=== PATIENT | male | born 2000 | race American Indian/Alaskan Native ===

== ENCOUNTER 2019-11-08 06:17 | Emergency (ER) | payer SELFPAY ==
[2019-11-08] MEDS ORDERED: hydrOXYzine HCL 25 MG TAB PO ONE (07:28)
[2019-11-08] MEDS ORDERED: SODIUM CHLORIDE 0.9% 1000 ML 1,000 ML IV ONE (07:28)
[2019-11-08] MEDS ORDERED: SODIUM CHLORIDE 0.9% 500 ML 500 ML IV ONE (07:28)
--- NOTE | 2019-11-08 07:37 | Emergency Department Report ---
ED Psych HPI - General Chief Complaint: Anxiety Stated Complaint: HEART RACING Time Seen by Provider: 11/08/19 07:17 Source: patient, EMS Mode of arrival: Ambulatory - History of Present Illness Initial Comments: 19-year-old male with no significant past medical history was brought to the ER today by EMS with complaints of feeling anxious. Patient states that around 5 AM this morning while he was at work, he took a puff from one of his coworker vape pens. He states soon after he started to feel very shaky and anxious, and he felt very euphoric, talkative and alert. He states he felt like he could not calm down and he felt like his heart was racing and he also felt nauseous. he states he does not know what type of liquid was in the vap. He states since arriving to ED he feels like his symptoms are improving but not completely. He states thay this was the first time vapping. He states he was just curious and therefore decided to try it. He denies ever using drugs in the past. He denies alcohol use. He denies any suicidal or homicidal ideation. He denies any kwok ucinations. He currently denies any chest pain, shortness of breath, vomiting, abdominal pain or any other symptoms at this time. He denies past hx of psych disorders. MD Complaint: other (Anxiety) -: Sudden Associated Psychiatric Symptoms: other (Anxiety) History of same: No Quality: constant Improves With: none Worsens With: none Context: recent drug abuse - Related Data Allergies Allergy/AdvReac Type Severity Reaction Status Date / Time No Known Allergies Allergy Verified 11/08/19 06:26 ED Review of Systems ROS: Stated complaint: HEART RACING Other details as noted in HPI Constitutional: denies: chills, diaphoresis, fever, weakness ENT: denies: throat pain, dental pain, hearing loss, epistaxis, congestion Respiratory: denies: cough, shortness of breath, wheezing Cardiovascular: palpitations. denies: chest pain, dyspnea on exertion, edema, syncope, paroxysmal nocturnal dyspnea, other Gastrointestinal: nausea. denies: abdominal pain, vomiting, diarrhea Genitourinary: denies: urgency, dysuria Musculoskeletal: denies: back pain, joint swelling, arthralgia Skin: denies: rash, lesions Neurological: denies: headache, weakness, paresthesias Psychiatric: anxiety. denies: depression, auditory hallucinations, visual hallucinations, homicidal thoughts, suicidal thoughts ED Past Medical Hx - Past Medical History Previous Medical History?: No - Surgical History Past Surgical History?: Yes Additional Surgical History: unsure - Social History Smoking Status: Current Every Day Smoker ED Physical Exam - General Limitations: No Limitations General appearance: alert, anxious - Head Head exam: Present: atraumatic, normocephalic, normal inspection - Eye Eye exam: Present: normal appearance, PERRL, EOMI Pupils: Present: normal accommodation - ENT ENT exam: Present: mucous membranes dry - Neck Neck exam: Present: normal inspection, full ROM. Absent: tenderness - Respiratory Respiratory exam: Present: normal lung sounds bilaterally - Cardiovascular Cardiovascular Exam: Present: normal rhythm, tachycardia, normal heart sounds - GI/Abdominal GI/Abdominal exam: Present: soft. Absent: tenderness - Neurological Exam Neurological exam: Present: alert, oriented X3, CN II-XII intact - Psychiatric Psychiatric exam: Present: anxious. Absent: homicidal ideation, suicidal ideation - Skin Skin exam: Present: intact ED Course Vital Signs 11/08/19 06:23 Temperature 98.4 F Pulse Rate 103 H Respiratory 18 Rate Blood Pressure 150/117 O2 Sat by Pulse 96 Oximetry ED Medical Decision Making - Lab Data Result diagrams: 11/08/19 07:35 11/08/19 07:35 - Medical Decision Making [id number] -- patient reports feeling better after IV fluids and atarax. He is actually ready to go home. His labs and UDS reviewed and unremarkable. Patient is well appearing, not toxic and no acute distress, awake, alert and oriented x3 with clear mind capable of making his own decisions. He is neurologically intact. Discussed lab results with patient and also discussed effects of drugs and why he should not use them. Patient expresses understanding of lab results, and discharge instructions. He is stable at time of d/c. Recommend close f/u with PCP but if anything changes return to ED. Critical care attestation.: If time is entered above; I have spent that time in minutes in the direct care of this critically ill patient, excluding procedure time. ED Disposition Clinical Impression: Adverse drug reaction Disposition: DC-01 TO HOME OR SELFCARE Is pt being admited?: No Does the pt Need Aspirin: No Condition: Stable Instructions: Adverse Drug Reaction (ED) Additional Instructions: Continue to drink lots of water at home. Lots of rest today. I would advise you not to try or do any drugs as it is not safe. Recommend close f/u with PCP. Return to ED if anything changes or worsens. Referrals: PRIMARY CARE, [Primary Care Provider] - 3-5 Days Forms: Work/School Release Form(ED) Time of Disposition: 09:24
[2019-11-08 07:51] LABS: Basophils # (Auto) 0.1 K/mm3 (0.0-0.1); Basophils % (Auto) 0.7 % (0.0-1.8); Eosinophils # (Auto) 0.1 K/mm3 (0.0-0.4); Eosinophils % (Auto) 1.7 % (0.0-4.3); Lymphocytes # (Auto) 2.4 K/mm3 (1.2-5.4); Lymphocytes % (Auto) 34.8 % (13.4-35.0); Mean Corpuscular HGB Conc 36 % (32-34); Mean Corpuscular Volume 85 fl (84-94); Monocytes # (Auto) 0.5 K/mm3 (0.0-0.8); Monocytes % (Auto) 7.2 % (0.0-7.3); Platelet Count 261 K/mm3 (140-440); Red Blood Count 5.04 M/mm3 (3.65-5.03); Red Cell Distribution Width 13.1 % (13.2-15.2)
[2019-11-08 07:53] LABS: Hemoglobin 15.4 gm/dl (11.8-15.2)
[2019-11-08 08:13] LABS: Alanine Aminotransferase 24 units/L (7-56); Albumin 4.9 g/dL (3.9-5); BUN/Creatinine Ratio 11; Blood Urea Nitrogen 12 mg/dL (9-20); Calcium 9.6 mg/dL (8.4-10.2); Hemolysis Index 19
[2019-11-08 09:17] LABS: Amphetamine Screen,Urine PRESUMPTIVE NEGATIVE; Benzodiazepines Screen,Urine PRESUMPTIVE NEGATIVE; Cannabinoid Screen,Urine PRESUMPTIVE NEGATIVE; Cocaine Screen,Urine PRESUMPTIVE NEGATIVE; Methadone Screen,Urine PRESUMPTIVE NEGATIVE; Opiate Screen,Urine PRESUMPTIVE NEGATIVE
[2019-11-09 13:10] VITALS: BP 150/117
== END 2019-11-08 09:32 | disposition home or self-care (01) ==
LOC: ED 06:17
DX: R11.0 Nausea (principal); F41.9 Anxiety disorder, unspecified; T50.905A Adverse effect of unspecified drugs, medicaments and biological substances, initial encounter; F17.200 Nicotine dependence, unspecified, uncomplicated; Y92.89 Other specified places as the place of occurrence of the external cause
CPT/HCPCS: 36415; 80053; 80307; 82693; 85025; 99284; J7030; 80320; G0480